=== PATIENT | male | born 1965 ===

== ENCOUNTER 2025-04-26 10:00 | Day surgery (SDC) | payer OTHER ==
[2025-04-22 11:17] LABS: URINE APPEARANCE Clear; URINE BILIRRUBIN Negative (NEGATIVE); URINE BLOOD Negative; URINE COLOR Yellow; URINE GLUCOSE Negative (NEGATIVE); URINE KETONE Trace (NEGATIVE); URINE LEUKOCYTE Negative; URINE NITRATE Negative; URINE PROTEIN Negative (NEGATIVE); URINE UROBILINOGEN 0.2 E.U./dl
[2025-04-22 11:19] VITALS: BP 140/87
[2025-04-22 11:22] LABS: URINE BACTERIA 4.7 uL (0.0-1933); URINE RBC 2.1 uL (0.0-20.8); URINE WBC 1.8 uL (0.0-23.2)
[2025-04-22 11:24] LABS: URINE CAST 0.14 uL (0.0-1.40); URINE EPITHELIAL CELLS 1.3 uL (0.0-38.8)
[2025-04-22 11:33] LABS: INR 1.0
[2025-04-22 12:05] LABS: ALT/SGPT 25.0 U/L (12-78); AST/SGOT 18.0 U/L (15-37); BILIRUBIN TOTAL 0.35 mg/dL (0.3-1.2); BUN CREA RATIO 20.0 (7.0-25.0); CREATININE SERUM 1.11 mg/dL (0.70-1.30); GFR 67.35; GLOBULINA 3.2 G/DL (2.4-3.5); GLUCOSE FASTING 99.0 mg/dL (65-100); OSMOLALITY SERUM 290.0 MOSM/KG (275-295)
[2025-04-22 12:40] LABS: BASO % 0.3 % (0.1-1.2); EOS # 0.02 (0.04-0.54); EOS % 0.3 % (0.7-7.0); LYMPH # 2.15 (1.18-3.74); LYMPH % 33.3 % (19.3-53.1); MEAN PLATELET VOLUME 13.30 fl (9.4-12.4); MONO # 0.68 (0.24-0.82); MONO % 10.5 % (4.7-12.5); NEUT # 3.58 (1.56-6.13); NEUT % 55.4 % (34.0-71.1); RED CELL DISTRIBUTION WIDTH 15.6 % (11.6-14.4)
[~2025-04-26] VITALS: Ht 157.5 cm; Wt 68.0 kg
[~2025-04-26 10:00] MED LIST: COZAAR25 MG PO; LIPITOR20 MG
[2025-04-26] MEDS ORDERED: METRONIDAZOLE/SODIUM CHLORIDE 500 MG/100 ML PIGGYBACK IV ONE (10:17)
[2025-04-26] MEDS ORDERED: CEFTRIAXONE SODIUM 2,000 MG VIAL ONE (10:17)
[2025-04-26] MEDS ORDERED: POVIDONE-IODINE 118 ML BOTT TOP ONE (10:30)
[2025-04-26] MEDS ORDERED: DIBUCAINE 30 GM TUBE ONE (10:30)
[2025-04-26] MEDS ORDERED: HEMOSTATIC MATRIX 1 KIT KIT TOP ONE (10:30)
[2025-04-26] MEDS ORDERED: TRAM1TAB98 PO (11:46)
[2025-04-26] MEDS ORDERED: COLACE100 MG PO (11:46)
== END 2025-04-26 21:25 | disposition home or self-care (01) ==
LOC: CIR.AMB 10:00
PROVIDERS: ATTEND Surgery
DX: K60.321 Anal fistula, complex, initial (principal); K63.89 Other specified diseases of intestine